=== PATIENT | female | born 1980 | race Caucasian/White ===

== ENCOUNTER 2016-10-16 17:45 | Emergency (ER) | payer OTHER ==
[~2016-10-16] VITALS: Ht 160 cm; Wt 68.0 kg
[~2016-10-16 17:45] MED LIST: ACULAR 3 ML3 ML OPH; ADDERALL20 MG PO; ADVAIR DISKUS 21 DSK INH; AMOXICILLIN500 MG PO; AMPHETAMINE SAL10 MG PO; ATENOLOL-CHLORTHAL 5 PO; ATENOLOL/CHLORT1 TA1 PO; ATROVENT HFA 121 PUF INH; AUGMENTIN 875 M1 TAB PO; BACTRIM DS 8001 TAB PO; BACTROBAN OINT.30 GM TOP; BENTYL20 M1 PO; BLM PO; BUPROPION HCL150 M2 PO; CALCIUM 600600 M1 PO; CIPRO 500MG TA500 MG PO; CIPRODEX 0.3%-7.5 ML OT; CIPRODEX OTIC7.5 ML OT; COMBIVENT RESPI1 SPR INH; COMBIVENT1 ARO INH; DELTASONE20 MG PO; DEXTROAMPH SACC20 MG PO; DICLOFENAC SODI50 MG PO; GABAPENTIN300 MG PO; GABAPENTIN600 MG PO; GOOD SENSE IBU200 MG PO; HYDROCODON-ACETAMINO PO; HYDROCODONE/ACE1 TA1 PO; HYDROCODONE/ACE1 TAB PO; HYDROXYZINE HCL50 M1 PO; KEFLEX500 M1 PO; LOSARTAN POTASS50 MG PO; MACROBID100 MG PO; MEDROL DOSEPAK1 PAC PO; MEDROL4 M2 PO; MELOXICAM15 M1 PO; MORPHINE SULFAT30 M2 PO; MOTRIN 600 MG600 MG PO; MS CONTIN60 MG PO; NAPROSYN500 M1 PO; NASONEX0.05 MG/Ac NAS; NEURONTIN300 M1 PO; NORCO 325 MG-101 TAB PO; NORFLEX100 MG PO; NUVIGIL250 MG PO; PERCOCET 325 MG1 TA2 PO; PERCOCET 325 MG1 TA3 PO; PERMETHRIN60 GM TOP; PHENERGAN25 M1 PO; POLYTRIM O200 GTT/BO OPH; PRILOSEC OTC20 MG PO; PRIMATENE 12.51 TAB PO; PROAIR HFA0.09 MG/Ac INH; PROMETHAZINE25 M1 PO; PROMETHAZINE25 MG PO; PYRIDIUM200 MG PO; TAGAMET300 MG PO; TESSALON PERLE100 MG PO; TOPICAINE 4%1 TBE TOP; TORADOL10 MG PO; TRIAMCINOLONE A80 GM TOP; TYLENOL #31 TAB PO; VENLAFAXINE HY150 MG PO; VIGAMOX 0.60 GTT/1 B OS; VITAMIN B COMPL1 CAP PO; VITAMIN B-150 MG PO; VITAMIN C500 M3 PO; VITAMIN D31000 IU PO; ZOFRAN 4 MG TABL4 MG PO; ZOFRAN ODT4 MG PO; ZOFRAN4 M2 PO; ZOFRAN4 MG PO; ZOHYDRO ER10 MG PO; ZOHYDRO ER20 M1 PO; ZOHYDRO ER20 MG PO
[2016-10-16 17:50] VITALS: BP 138/88
--- NOTE | 2016-10-16 18:03 | ED EAR COMPLAINT ---
History of Present Illness General Chief Complaint: Ear Complaints Stated Complaint: EAR PAIN Source: patient Exam Limitations: no limitations Vital Signs & Intake/Output Vital Signs & Intake/Output Vital Signs Date Time Temp Pulse Resp B/P Pulse O2 O2 Flow FiO2 Ox Delivery Rate 10/16 1750 98.1 62 16 138/88 98 Room Air Allergies Coded Allergies: peach (Severe, LIPS AND THROAT SWELLING 02/19/16) pineapple (Severe, LIPS SWELL AND THROAT CLOSES 02/19/16) cat dander (Intermediate, FACIAL SWELLING 02/19/16) Reconcile Medications Amoxicillin/Potassium Clav (Augmentin 875-125 Tablet) 875 MG-125 MG TABLET 1 TAB PO BID otitis media Ascorbic Acid (Vitamin C) (Unknown Strength) TAB (Unknown Dose) PO DAILY SUPPLEMENT (Reported) BUPROPION HCL (Bupropion XL) 150 MG T24 1 TAB PO QAM MENTAL HEALTH (Reported) Calcium Carbonate (Calcium 600) (Unknown Strength) TAB (Unknown Dose) PO DAILY SUPPLEMENT (Reported) Cholecalciferol (Vitamin D3) (Unknown Strength) TAB (Unknown Dose) PO DAILY SUPPLEMENT (Reported) Cimetidine (Tagamet) (Unknown Strength) TAB (Unknown Dose) PO PRN GI ( Reported) DEXTROAMPHETAMINE/AMPHETAMINE (Adderall 20 MG Tablet) 20 MG TAB 1 TAB PO BID ADD (Reported) Dicyclomine HCl (Bentyl) 20 MG TABLET 1 TAB PO TID PRN GASTRITIS FLUTICASONE/SALMETEROL (Advair 250-50 Diskus) 250 MCG-50 MCG/DOSE BLST.W.DEV 1 PUFF INH BID ASTHMA (Reported) Gabapentin 300 MG CAPSULE 900 MG PO TID NEUROPATHY (Reported) Hydrocodone Bitartrate (Zohydro ER) 20 MG CAP.ER.12H 1 TAB PO BID PAIN ( Reported) Ibuprofen 200 MG TABLET 2 TAB PO PRN PAIN (Reported) IPRATROPIUM/ALBUTEROL SULFATE (Combivent Respimat Inhal [place]) 1 SPR SPR 1 PUFF INH PRN ASTHMA (Reported) Ms Contin (Morphine Sulfate ER) 60 MG TABLET.ER 1 TAB PO TID PRN PAIN Naproxen (Naprosyn) 500 MG TABLET 1 TAB PO BID PRN pain Ondansetron HCl (Zofran) 4 MG TABLET 1 TAB PO Q6-8P PRN NAUSEA PROMETHAZINE HCL (Promethazine) 25 MG TAB 1 TAB PO TID PRN NAUSEA (Reported) VENLAFAXINE HCL (Venlafaxine HCl ER) 150 MG CAP.ER.24H 150 MG PO DAILY ADD/ ANXIETY (Reported) Vitamin B Complex 1 EACH CAPSULE 1 CAP PO DAILY SUPPLEMENT (Reported) Triage Note: PT STATES HER RIGHT EAR HAS BEEN BOTHERING HER FOR A WHILE. PT STATES EVERYTIME SHE BLOWS HER NOSE FLUID COMES OUT OF IT. PT STATES IT HURTS WHEN SHE SWOLLOWS. PT STATES LIGHT YELLOW DRAINAGE FROM THE EAR. Triage Nurses Notes Reviewed? yes Onset: Abrupt Duration: day(s): Timing: recent history Injury Environment: home Severity: moderate, severe No Modifying Factors: none : No Patient currently breastfeeds: No HPI: 35-year-old female comes into emergency room for further evaluation of right ear pain. Symptoms have been going on for many days now. Patient has been having drainage out of the ear. Sharp throbbing pain. Some associated whooshing at times. Denies any other associated symptoms currently. (HEBERT SCHAEFFER) Past History Travel History Traveled to [place] past 21 day No Medical History Any Pertinent Medical History? 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 No (HEBERT SCHAEFFER) Review of Systems Review of Systems Constitutional: Reports: no symptoms. EENTM: Reports: see HPI. Respiratory: Reports: no symptoms. Cardiovascular: Reports: no symptoms. GI: Reports: no symptoms. Genitourinary: Reports: no symptoms. Musculoskeletal: Reports: no symptoms. Skin: Reports: no symptoms. Neurological/Psychological: Reports: no symptoms. Hematologic/Endocrine: Reports: no symptoms. Immunologic/Allergic: Reports: no symptoms. All Other Systems: Reviewed and Negative (HEBERT SCHAEFFER) Physical Exam Physical Exam General Appearance: well developed/nourished Head: atraumatic Eyes: Bilateral: normal appearance. Ears: Right: Tympanic dull. Nose: normal inspection Mouth/Throat: normal mouth inspection Neck: normal inspection Cardiovascular/Respiratory: no respiratory distress Back: normal inspection Neurologic/Psych: awake, alert, oriented x 3, normal mood/affect Skin: intact, normal color, warm/dry (HEBERT SCHAEFFER) Progress Differential Diagnoses I considered the following diagnoses in my evaluation of the patient: Otitis media, otitis externa, mastoiditis, perforation, foreign body Plan of Care: Current Medications Sig/Jarek Start time Last Medication Dose Stop Time Status Admin Amoxicillin/ 1,000 MG ONCE ONE 10/16 1814 UNVr Clavulanate Potassium 10/16 1815 (Augmentin) Initial ED EKG: none (HEBERT SCHAEFFER) Departure Departure Disposition: HOME OR SELF CARE Condition: Stable Clinical Impression Primary Impression: Right otitis media Referrals: TIM CRESPO MD (PCP/Family) Additional Instructions: Take Augmentin as prescribed. Follow-up with ear nose and throat doctor. There may be a small perforation. Return if any other concerns. Please go over all results of today's visit with your primary care doctor. Contact your primary care doctor to let them know you were here in the emergency room. There may be nonspecific findings which may not be related to your visit today here in the emergency room but may require further evaluation and chronic monitoring by your primary care doctor. If you had a laceration today the chance of foreign body always remains. You should follow-up with your primary care doctor for recheck in 3-5 days for a wound check. If you had an x-ray done there is a chance that a fracture could have been missed on initial read and you should follow-up with your primary care doctor for repeat x-rays if symptoms persist. If your blood pressure was elevated here in the emergency room please have rechecked by her primary care doctor within the next 48 hours by your primary care doctor. If you were prescribed a narcotic here in the emergency room or any type of controlled substances you're not allowed to drive while taking this medication or operate any type of heavy machinery. Narcotics can make you feel lightheaded dizziness nausea and can cause constipation. 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 Thank you for choosing [facility] emergency room. Please return to the emergency room immediately if you have any other concerns worsening of symptoms. Departure Forms: Customer Survey General Discharge Information Prescriptions: Current Visit Scripts Amoxicillin/Potassium Clav (Augmentin 875-125 Tablet) 1 TAB PO BID #20 TAB (HEBERT SCHAEFFER) PA/MANAGER OF DISTRIBUTION Co-Sign Statement Statement: ED Attending supervision documentation- [] I saw and evaluated the patient. I have also reviewed all the pertinent lab results and diagnostic results. I agree with the findings and the plan of care as documented in the PA's/MANAGER OF DISTRIBUTION's documentation. [X] I have reviewed the ED Record and agree with the PA's/MANAGER OF DISTRIBUTION's documentation. [] Additions or exceptions (if any) to the PAs/MANAGER OF DISTRIBUTION's note and plan are summarized below: [] (TRACI LEE,CAREY Shepard)
[2016-10-16] MEDS ORDERED: AUGMENTIN 875-1 EACH PO (18:04)
== END 2016-10-16 18:30 ==
LOC: ERH 17:45
DX: H66.91 Otitis media, unspecified, right ear (principal)
CPT/HCPCS: J3490

== ENCOUNTER 2016-10-21 17:53 | Emergency (ER) | payer OTHER ==
[~2016-10-21] VITALS: Ht 160 cm; Wt 68.0 kg
[~2016-10-21 17:53] MED LIST changes: +AUGMENTIN 875-1 EACH PO
[2016-10-21 17:59] VITALS: BP 122/84
--- NOTE | 2016-10-21 18:44 | ED EAR COMPLAINT ---
History of Present Illness General Chief Complaint: General Adult Stated Complaint: RG EAR HAS BLOOD AND PUS,VOMITING AND DIZZY Source: patient, old records Exam Limitations: no limitations Vital Signs & Intake/Output Vital Signs & Intake/Output Vital Signs Date Time Temp Pulse Resp B/P Pulse O2 O2 Flow FiO2 Ox Delivery Rate 10/21 1759 97.9 80 20 122/84 96 Room Air Allergies Coded Allergies: peach (Severe, LIPS AND THROAT SWELLING 10/21/16) pineapple (Severe, LIPS SWELL AND THROAT CLOSES 10/21/16) cat dander (Intermediate, FACIAL SWELLING 10/21/16) Reconcile Medications Amoxicillin/Potassium Clav (Augmentin 875-125 Tablet) 875 MG-125 MG TABLET 1 TAB PO BID otitis media Ascorbic Acid (Vitamin C) (Unknown Strength) TAB (Unknown Dose) PO DAILY SUPPLEMENT (Reported) BUPROPION HCL (Bupropion XL) 150 MG T24 1 TAB PO QAM MENTAL HEALTH (Reported) Calcium Carbonate (Calcium 600) (Unknown Strength) TAB (Unknown Dose) PO DAILY SUPPLEMENT (Reported) Cholecalciferol (Vitamin D3) (Unknown Strength) TAB (Unknown Dose) PO DAILY SUPPLEMENT (Reported) Cimetidine (Tagamet) (Unknown Strength) TAB (Unknown Dose) PO PRN GI ( Reported) DEXTROAMPHETAMINE/AMPHETAMINE (Adderall 20 MG Tablet) 20 MG TAB 1 TAB PO BID ADD (Reported) Dicyclomine HCl (Bentyl) 20 MG TABLET 1 TAB PO TID PRN GASTRITIS FLUTICASONE/SALMETEROL (Advair 250-50 Diskus) 250 MCG-50 MCG/DOSE BLST.W.DEV 1 PUFF INH BID ASTHMA (Reported) Gabapentin 300 MG CAPSULE 900 MG PO TID NEUROPATHY (Reported) Hydrocodone Bitartrate (Zohydro ER) 20 MG CAP.ER.12H 1 TAB PO BID PAIN ( Reported) Ibuprofen 200 MG TABLET 2 TAB PO PRN PAIN (Reported) IPRATROPIUM/ALBUTEROL SULFATE (Combivent Respimat Inhal [place]) 1 SPR SPR 1 PUFF INH PRN ASTHMA (Reported) Ms Contin (Morphine Sulfate ER) 60 MG TABLET.ER 1 TAB PO TID PRN PAIN Naproxen (Naprosyn) 500 MG TABLET 1 TAB PO BID PRN pain Ondansetron (Zofran Odt) 4 MG TAB.RAPDIS 1 TAB SL TID PRN NAUSEA Ondansetron HCl (Zofran) 4 MG TABLET 1 TAB PO Q6-8P PRN NAUSEA PROMETHAZINE HCL (Promethazine) 25 MG TAB 1 TAB PO TID PRN NAUSEA (Reported) VENLAFAXINE HCL (Venlafaxine HCl ER) 150 MG CAP.ER.24H 150 MG PO DAILY ADD/ ANXIETY (Reported) Vitamin B Complex 1 EACH CAPSULE 1 CAP PO DAILY SUPPLEMENT (Reported) Triage Note: TRIAGE: PT TO ER C/C EAR INFECTION AND RUPTURED EAR DRUM. WAS SEEN HERE FOR SAME AND STARTED ON AUGMENTIN. RETURNS BECAUSE SHE WANTS TO MAKE SURE THE S/S OF EAR PRESSURE, PAIN, LEAKING OF BLOOD AND PUS, NAUSEA AND DIZZINESS WITH ASSOCIATED VOMITING. S/S OF N/V AND DIZZINESS STARTED LAST NIGHT. Triage Nurses Notes Reviewed? yes Onset: Abrupt Duration: day(s): (4), constant Timing: recent history Injury Environment: home Severity: mild, moderate Severity Numbers: 5 No Modifying Factors: none Associated Symptoms: naus avomiiting, dizziness : No Patient currently breastfeeds: No HPI: 35-year-old female presents emergency room for evaluation complaining of persistent right ear pain for the past 3-4 days associated with a 2 day history of nausea vomiting dizziness. The patient states that she went to her primary care physician after being seen here and was prescribed Augmentin confirm that she had a perforated eardrum. She is not follow-up with ENT as well as recommended there's been no recent new injury fever chills. She denies any vision changes neck or back pain no scalp pain. She denies cough sore throat or difficulty swallowing. She describes the pain as a pressure feeling and aching constant nonradiating. (ALBERTO PENA) Past History Travel History Traveled to [place] past 21 day No Medical History Any Pertinent Medical History? 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 No (ALBERTO PENA) Review of Systems Review of Systems Constitutional: Reports: see HPI. All Other Systems: Reviewed and Negative Comments Review of systems: See HPI, All other systems negative. Constitutional, no chills no fever, no malaise HEENT: No visual changes no sore throat no congestion, Cardiovascular: No chest pain , no palpitation Skin, no rashes, no change in skin Respiratory: No dyspnea no cough no sputum GI: No nausea no vomiting, no diarrhea, n : No dysuria Muscle skeletal: No joint pain, no back pain, no neck pain, Neurologic: No numbness no headache Psych: No stress Heme/endocrine: No bruising no bleeding Immunology: No lymphadenopathy, (ALBERTO PENA) Physical Exam Physical Exam General Appearance: well developed/nourished, no apparent distress, alert, awake Ears: Right: evidence of perforation. Comments: Well-developed well-nourished patient in no apparent distress. Head/Face: Atraumatic, no maxillary/frontal sinus tenderness, no facial swelling scalp is atraumatic nontender no mastoid tenderness Eyes: PERRL, EOMI, no conjunctival injection. No nystagmus Ear:Right tm perforated, erythatomous, left External auditory canal and Tympanic membrane clear, no erythema, no FB. Nose: atraumatic.Normal inspection: No bleeding, no septal hematoma Throat: Moist mucous membranes.Pharynx normal. No pharyngeal erythema/exudate seen. No stridor/drooling or assymetry. No swelling or edema. Neck: Supple, no lymphadenopathy, FROM Back: FROM, Nontender Cardiovascular: Regular rate and rhythms no murmurs rubs Respiratory: Chest nontender.There were no bony deformities, no asymmetry. No respiratory distress. Patient speaking in full complete sentences. Breath sounds clear to auscultation bilaterally: NO W/R/R Extremities: full range of motion Neuro: Alert and oriented x3 Skin: Warm & dry;No appreciable rash on exposed skin Psych: Mood affect normal, normal memory normal judgment. (ALBERTO PENA) Progress Differential Diagnoses I considered the following diagnoses in my evaluation of the patient: Otitis media and mastoiditis cellulitis perforation otitis externa Plan of Care: Current Medications Sig/Jarek Start time Last Medication Dose Stop Time Status Admin Ondansetron HCl 4 MG ONCE ONE 10/21 1899 UNVr (Zofran) 10/21 1900 I advised the patient continue taking the Augmentin she clinically appears well tolerating by mouth here afebrile nontoxic appearing and discussed with her need for close follow-up with ear nose and throat advised return anytime sooner with any concerns answered all of her questions she feels comfortable with this plan (ALBERTO PENA) Initial ED EKG: none (ALBERTO PENA) Departure Departure Time of Disposition: 1853 Disposition: HOME OR SELF CARE Condition: Stable Clinical Impression Primary Impression: Otitis media Secondary Impressions: Perforated tympanic membrane Referrals: TIM CRESPO MD (PCP/Family) MAYLIN LEE,LUCRECIA Additional Instructions: CONTINUE TAKING AUGMENTIN. ZOFRAN NEEDED FOR NAUSEA. FOLLOW UP WITH ENT DR CARLISLE. RETURN WITH ANY CONCERNS THIS PRESCRIPTION WAS SENT TO [facility] Departure Forms: Customer Survey General Discharge Information Prescriptions: Current Visit Scripts Ondansetron (Zofran Odt) 1 TAB SL TID PRN NAUSEA #10 TAB (ALBERTO PENA) PA/MOLD CLEANING AND STORAGE SUPERVISOR Co-Sign Statement Statement: ED Attending supervision documentation- [] I saw and evaluated the patient. I have also reviewed all the pertinent lab results and diagnostic results. I agree with the findings and the plan of care as documented in the PA's/MOLD CLEANING AND STORAGE SUPERVISOR's documentation. x I have reviewed the ED Record and agree with the PA's/MOLD CLEANING AND STORAGE SUPERVISOR's documentation. [] Additions or exceptions (if any) to the PAs/MOLD CLEANING AND STORAGE SUPERVISOR's note and plan are summarized below: [] (JOB LEE,TYRONE)
[2016-10-21] MEDS ORDERED: ZOFRAN ODT4 M1 SL (18:55)
== END 2016-10-21 19:06 ==
LOC: ERH 17:53
DX: H66.91 Otitis media, unspecified, right ear (principal)
CPT/HCPCS: J3101

== ENCOUNTER 2017-02-01 18:27 | Emergency (ER) | payer OTHER ==
[~2017-02-01] VITALS: Ht 160 cm; Wt 69.9 kg
[~2017-02-01 18:27] MED LIST changes: +ZOFRAN ODT4 M1 SL
[2017-02-01 18:33] VITALS: BP 137/83
[2017-02-01] MEDS ORDERED: ZITHROMAX250 M2 PO (19:58)
[2017-02-01] MEDS ORDERED: PERMETHRIN60 GM TOP (19:58)
[2017-02-01] MEDS ORDERED: NEOMYCIN-POLYMY10 M1 OT (19:58)
--- NOTE | 2017-02-01 20:00 | ED INFLUENZA/URI COMPLAINT ---
History of Present Illness General Chief Complaint: General Adult Stated Complaint: EAR PAIN SORE THROAT RASH ON CHEST Source: patient Exam Limitations: no limitations Vital Signs & Intake/Output Vital Signs & Intake/Output Vital Signs Date Time Temp Pulse Resp B/P B/P Pulse O2 O2 Flow FiO2 Mean Ox Delivery Rate 02/01 1833 98.0 78 16 137/83 97 Room Air Allergies Coded Allergies: peach (Severe, LIPS AND THROAT SWELLING 10/21/16) pineapple (Severe, LIPS SWELL AND THROAT CLOSES 10/21/16) cat dander (Intermediate, FACIAL SWELLING 10/21/16) Reconcile Medications Amoxicillin/Potassium Clav (Augmentin 875-125 Tablet) 875 MG-125 MG TABLET 1 TAB PO BID otitis media Ascorbic Acid (Vitamin C) (Unknown Strength) TAB (Unknown Dose) PO DAILY SUPPLEMENT (Reported) BUPROPION HCL (Bupropion XL) 150 MG T24 1 TAB PO QAM MENTAL HEALTH (Reported) Calcium Carbonate (Calcium 600) (Unknown Strength) TAB (Unknown Dose) PO DAILY SUPPLEMENT (Reported) Cholecalciferol (Vitamin D3) (Unknown Strength) TAB (Unknown Dose) PO DAILY SUPPLEMENT (Reported) Cimetidine (Tagamet) (Unknown Strength) TAB (Unknown Dose) PO PRN GI ( Reported) DEXTROAMPHETAMINE/AMPHETAMINE (Adderall 20 MG Tablet) 20 MG TAB 1 TAB PO BID ADD (Reported) Dicyclomine HCl (Bentyl) 20 MG TABLET 1 TAB PO TID PRN GASTRITIS FLUTICASONE/SALMETEROL (Advair 250-50 Diskus) 250 MCG-50 MCG/DOSE BLST.W.DEV 1 PUFF INH BID ASTHMA (Reported) Gabapentin 300 MG CAPSULE 900 MG PO TID NEUROPATHY (Reported) Hydrocodone Bitartrate (Zohydro ER) 20 MG CAP.ER.12H 1 TAB PO BID PAIN ( Reported) Ibuprofen 200 MG TABLET 2 TAB PO PRN PAIN (Reported) IPRATROPIUM/ALBUTEROL SULFATE (Combivent Respimat Inhal [place]) 1 SPR SPR 1 PUFF INH PRN ASTHMA (Reported) Ms Contin (Morphine Sulfate ER) 60 MG TABLET.ER 1 TAB PO TID PRN PAIN Naproxen (Naprosyn) 500 MG TABLET 1 TAB PO BID PRN pain Ondansetron (Zofran Odt) 4 MG TAB.RAPDIS 1 TAB SL TID PRN NAUSEA Ondansetron HCl (Zofran) 4 MG TABLET 1 TAB PO Q6-8P PRN NAUSEA PROMETHAZINE HCL (Promethazine) 25 MG TAB 1 TAB PO TID PRN NAUSEA (Reported) VENLAFAXINE HCL (Venlafaxine HCl ER) 150 MG CAP.ER.24H 150 MG PO DAILY ADD/ ANXIETY (Reported) Vitamin B Complex 1 EACH CAPSULE 1 CAP PO DAILY SUPPLEMENT (Reported) Triage Note: PT STATES SHE HAS A SINUS STINSON TENDERNESS TO THE RIGHT SIDE OF HER FACE AND A SORE THROAT. PT STATES THE LAST TIME SHE HAD AN EAR INFECTION THE EAR DRUM PERFORATED. Triage Nurses Notes Reviewed? yes : No Patient currently breastfeeds: No HPI: Patient presents for evaluation of bilateral ear pain, right greater than left, sore throat and scattered rash. Patient states that she feels fluid behind the right ear and periauricular tenderness began gradually about 3 days ago. Symptoms have been constant and of gotten worse despite the use of over-the- counter pain medications. She denies associated fever or cough. She denies travel but states that her son is sick with nasal congestion and upper respiratory symptoms currently. In addition her son was also treated recently for scabies but she declined treatment Symptoms have become severe, interfering with sleep last night. Past History Travel History Traveled to [place] past 21 day No Medical History Any Pertinent Medical History? 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 No Review of Systems Review of Systems Constitutional: Reports: no symptoms. EENTM: Reports: see HPI. Respiratory: Reports: no symptoms. Cardiovascular: Reports: no symptoms. GI: Reports: no symptoms. Genitourinary: Reports: no symptoms. Musculoskeletal: Reports: no symptoms. Skin: Reports: see HPI. Neurological/Psychological: Reports: no symptoms. Hematologic/Endocrine: Reports: no symptoms. Immunologic/Allergic: Reports: no symptoms. All Other Systems: Reviewed and Negative Physical Exam Physical Exam Ears, Nose, Throat: SEE BELOW Comments: Gen.: Well-nourished, well-developed, no acute respiratory distress. Head: Normocephalic, atraumatic. Eyes: Normal inspection bilaterally Ears: Normal inspection bilaterally, right canal narrowed no erythema or drainage, right TM normal in appearance, left canal normal in appearance, left TM normal in appearance. Nose: Normal inspection Throat/mouth : Moist mucosa, no oropharyngeal erythema or exudates Neck: Supple, full range of motion, no goiter Heart: Regular rate and rhythm, no murmurs rubs or gallops Lungs: Clear to auscultation bilaterally with normal air entry Chest: Nontender Back: Normal range of motion Abdomen: Soft, nontender, nondistended, normal bowel sounds Extremities: Normal range of motion grossly, equal radial pulses, no cyanosis clubbing or edema Neurologic: Cranial nerves grossly intact, speech is clear Skin: warm and dry, scattered excoriated maculopapular rash of the nape of the neck, extremities chest and back Psychiatric: Calm, cooperative, no apparent delusions or hallucinations Lymphatic: No cervical lymphadenopathy Core Measures Severe Sepsis Present: No Septic Shock Present: No Progress Differential Diagnosis: VIRAL SYNDROME, OTITIS MEDIA, OTITIS EXTERNA, SCABIES, NONSPECIFIC RASH OR EXANTHEM Plan of Care: Orders Procedure Date/time Status THROAT CULTURE W/QUICK STREP 02/01 1835 Active Current Medications Sig/Jarek Start time Last Medication Dose Stop Time Status Admin Azithromycin 500 MG ONCE ONE 02/02 2000 AC (Zithromax) 02/01 2001 Initial ED EKG: none Comments: Suspect a viral syndrome in this patient with perhaps a secondary right external otitis. She had a that she also had a cough productive of occasionally blood- tinged sputum and provides a history of asthma. Under this situation I have elected to add azithromycin for possibility of a secondary bacterial bronchitis and given the patient's history of recent possible exposure to scabies, permethrin. Departure Departure Disposition: HOME OR SELF CARE Condition: Stable Clinical Impression Primary Impression: Viral URI Secondary Impressions: Rash and nonspecific skin eruption Right otitis externa Qualifiers: Otitis externa type: unspecified type Chronicity: acute Qualified Code: H60.501 - Unspecified acute noninfective otitis externa, right ear Referrals: ZAK LEE,TIM (PCP/Family) Additional Instructions: Follow-up with your ear nose and throat doctor or her primary care physician in 72 hours for reevaluation of your symptoms. Return if any concerns or sudden worsening. Departure Forms: Customer Survey General Discharge Information Prescriptions: Current Visit Scripts Permethrin 1 PAUL TOP ONCE #60 GM massage into skin from head to soles of feet one time, leave on for 8-14 hours then remove by thorough washing Azithromycin (Zithromax) 1 DP PO AD #6 TAB 2 the first day followed by 1 for days 2-5 Neomycin/Polymyxin B Sulf/Hc (Jcknqkhf-Imttrosni-Lc Ear Susp) 4 GTT OT TID #10 ML
== END 2017-02-01 20:17 ==
LOC: ERH 18:27
DX: J06.9 Acute upper respiratory infection, unspecified (principal); H60.91 Unspecified otitis externa, right ear; R21 Rash and other nonspecific skin eruption
CPT/HCPCS: J0456

== ENCOUNTER 2017-02-23 14:38 | Emergency (ER) | payer OTHER ==
[~2017-02-23] VITALS: Ht 160 cm; Wt 65.8 kg
[~2017-02-23 14:38] MED LIST changes: +NEOMYCIN-POLYMY10 M1 OT; +ZITHROMAX250 M2 PO
[2017-02-23 14:56] VITALS: BP 134/80
== END 2017-02-23 15:22 | disposition admitted as inpatient to this hospital (09) ==
LOC: ERH 14:38
DX: M25.561 Pain in right knee (principal)